=== PATIENT | female | born 2000 | race Caucasian/White ===

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

== ENCOUNTER 2023-07-18 07:36 | Inpatient (IN) ==
[2023-07-18] MEDS ORDERED: OXYTOCIN 30 UNITS/500 ML BAG IV PRN ×3 (08:13→19:38)
[2023-07-18] MEDS ORDERED: LIDOCAINE 1% LOCAL 20 ML VIAL INFIL PRN (08:13)
[2023-07-18] MEDS ORDERED: PENICILLIN G POTASSIUM 6 MU in DEXTROSE 5% 250 ML IV STA (08:20)
--- NOTE | 2023-07-18 08:27 | History & Physical Report ---
Date of Service July 18, 2023 Assessment & Plan (1) Encounter for induction of labor: Plan: failed hobbs insertion cytotec 25mcg PV (2) Group beta Strep positive: Plan: Pen G when contractions more regular Admission and Anticipated Discharge Date Admission Date: July 18, 2023 History of Present Illness Chief Complaint: 23 yo at 39w4d GBS+, umbilical vein abnormality, gestational diabetes, depression with anxiety here for IOL Primary Care Provider: Angelica Krishnan PA-C Allergies Allergy/AdvReac Type Severity Reaction Status Date / Time No Known Drug Allergies Allergy Verified 07/17/23 14:37 Home Medications Medication Instructions Recorded Confirmed Type prenat.vits,tru,jen-ifhx-[id number] 1 tab PO DAILY 12/25/22 07/18/23 History acetone (urine) test (Ketone Urine #50 ea 03/30/23 07/18/23 Rx Test strips) blood sugar diagnostic (OneTouch #150 ea 03/30/23 07/18/23 Rx Verio test strips) blood-glucose meter (OneTouch #1 ea 03/30/23 07/18/23 Rx Verio Reflect Meter) lancets 33 gauge (OneTouch Delica #150 ea 03/30/23 07/18/23 Rx Lancets) Past Med/Surg History Medical History Acne Dyshidrotic eczema Hx of concussion Left knee pain Varicella vaccination Surgical History S/P wisdom tooth extraction Family History Father Hypertension Mother Insulin resistance Hypothyroid Brother Hydronephrosis of right kidney Grandmother (Maternal) Diabetes Denies family history of Ovarian cancer Breast cancer Colorectal cancer Social History (Updated 07/18/23 @ 07:50 by Dahiana Haywood RN) Smoking Status: Never smoker Second Hand Exposure: No; Do You Dip or Chew Tobacco: No; Hx Alcohol Use: No Hx Substance Use: No Preferred Language: Lithuanian Communication Ability: Effective Assemblies [employer] Installations Inspector Required: No Beliefs That Will Affect Care: None marital status: marital status details: shashank Prado (25) [phone] Current Living Situation: Spouse Current Living Situation Comment: lives with , no pets current occupational status: unemployed current occupation: [employer] Other Information That Helps Us Care for You: No Feels Safe at Home: Yes Safety Concerns: Feels Safe At This Time Assistive Devices: Contacts and Glasses Physical Exam Physical Exam: General: patient resting comfortably, NAD, non-toxic in appearance, AA&O x 4, answers questions appropriately. Skin: warm, dry, intact HEENT: NC/AT, anicteric sclera, conjunctiva without injection, moist mucus membranes Heart: +S1/S2, regular, no m/r/g Lungs: equal air entry bilaterally, no rales/rhonchi/wheezes Abd: +BS, soft, NT/ND, gravid uterus Cervical: closed, high, uterus posterior, Ext: warm, no clubbing/cyanosis or edema Neuro: nonfocal, patient AA&O x 4, speech intact, no facial droop, moving all extremities on command. : FHR baseline 150, moderate variability, accelerations present, decelera tions absent Results & Data Results & Data Vital Signs (Past 12 Hours) Vital Signs Temp Pulse Resp BP 07/18/23 07:45 118 H 130/70 07/18/23 07:54 37.0 C 118 H 20 130/70 Laboratory Results 07/18/23 07/18/23 07/18/23 Range/Units 08:20 08:20 08:20 WBC 9.93 (4.8-10.8) K/ul RBC 4.34 (4.20-5.40) M/uL Hgb 11.0 L (12.0-16.0) g/dl Hct 33.4 L (37.0-47.0) % MCV 77.0 L (80.0-100.0) fL MCH 25.3 (25.0-34.0) pg MCHC 32.9 (32.0-36.0) g/dL RDW Std Deviation 39.6 (36.4-46.3) fL RDW Coeff of Angie 14.3 (11.5-14.5) % Plt Count 278 (130-400) K/uL MPV 9.5 (9.4-12.4) fL Glucose Pending Blood Type Pending Antibody Screen Pending Supervising Physician Co-Signing Physician Notes Resident Physician Supervision Note: I interviewed and examined the patient. Discussed with Dr. Posadas and agree with findings and plan as documented in the note. Any exceptions or clarifications are listed here: [None] Documented By: Debbie Alvares MD, FACOG Resident Activity Tracking Resident Involvement: Resident Care Provided Care Provided: Adult [facility] Medicine
[2023-07-18 08:40] LABS: Hematocrit (blood only) 33.4 % (37.0-47.0); Mean Corpuscular Hemoglobin 25.3 pg (25.0-34.0); Mean Corpuscular Hgb Conc 32.9 g/dL (32.0-36.0); Mean Platelet Volume 9.5 fL (9.4-12.4); Platelet Count 278 K/uL (130-400); RDW Coefficient of Variation 14.3 % (11.5-14.5); RDW Standard Deviation 39.6 fL (36.4-46.3); Red Blood Count 4.34 M/uL (4.20-5.40); White Blood Count 9.93 K/ul (4.8-10.8)
[2023-07-18] MEDS ORDERED: miSOPROStoL 25 MCG TAB ONE (08:45)
[2023-07-18] MEDS ORDERED: miSOPROStoL 25 MCG TAB PV SCH (09:00)
--- NOTE | 2023-07-18 09:16 | History & Physical Report ---
Date of Service July 18, 2023 Assessment & Plan (1) Umbilical vein abnormality affecting : Plan: induction for obstetrical reasons Cervix unfav, attempted cx hobbs, unable to pass thru cx successfully. Start Cytotec PV Admission and Anticipated Discharge Date Admission Date: July 18, 2023 History of Present Illness Primary Care Provider: Angelica Krishnan PA-C Allergies Allergy/AdvReac Type Severity Reaction Status Date / Time No Known Drug Allergies Allergy Verified 07/17/23 14:37 Home Medications Medication Instructions Recorded Confirmed Type prenat.vits,tru,rcu-thua-kkswd 1 tab PO DAILY 12/25/22 07/18/23 History acetone (urine) test (Ketone Urine #50 ea 03/30/23 07/18/23 Rx Test strips) blood sugar diagnostic (OneTouch #150 ea 03/30/23 07/18/23 Rx Verio test strips) blood-glucose meter (OneTouch #1 ea 03/30/23 07/18/23 Rx Verio Reflect Meter) lancets 33 gauge (OneTouch Delica #150 ea 03/30/23 07/18/23 Rx Lancets) Patient History Medical History Acne Dyshidrotic eczema Hx of concussion Left knee pain Varicella vaccination Surgical History S/P wisdom tooth extraction Family History Father Hypertension Mother Insulin resistance Hypothyroid Brother Hydronephrosis of right kidney Grandmother (Maternal) Diabetes Denies family history of Ovarian cancer Breast cancer Colorectal cancer Social History (Updated 07/18/23 @ 07:50 by Dahiana Haywood, ROSALBA) Smoking Status: Never smoker Second Hand Exposure: No; Do You Dip or Chew Tobacco: No; Hx Alcohol Use: No Hx Substance Use: No Preferred Language: Wolof Communication Ability: Effective [employer] Consultant Required: No Beliefs That Will Affect Care: None marital status: marital status details: shashank Prado (25) [phone] Current Living Situation: Spouse Current Living Situation Comment: lives with , no pets current occupational status: unemployed current occupation: [employer] Other Information That Helps Us Care for You: No Feels Safe at Home: Yes Safety Concerns: Feels Safe At This Time Assistive Devices: Contacts and Glasses Results & Data Vital Signs (Past 12 Hours) Vital Signs Temp Pulse Resp BP 07/18/23 07:45 118 H 130/70 07/18/23 07:54 98.6 F 118 H 20 130/70 Coding Level of Care Code None Diagnoses Umbilical vein abnormality affecting O35.8XX0
[2023-07-18] MEDS: miSOPROStoL 25 MCG TAB PV SCH ×3 (13:09→23:14)
--- NOTE | 2023-07-18 19:34 | Labor Progress Brief Note ---
Date of Service July 18, 2023 Patient has received 2 doses of Cytotec and she is tova however there is strength is still not highly intense cervical check is performed she is somewhat more effaced however I cannot perceive any dilatation at this time discussed continued efforts patient is very hungry now would like to eat something I think this is reasonable after this then I will start Pitocin. Assessment & Plan Admission and Anticipated Discharge Date Admission Date: July 18, 2023 Results & Data Vital Signs (Past 12 Hours) Vital Signs Temp Pulse Resp BP 07/18/23 18:54 97.5 F L 91 H 18 98/57 L 07/18/23 16:52 98.4 F 81 18 125/71 07/18/23 12:31 18 07/18/23 12:31 98.4 F 18 07/18/23 12:32 83 127/62 07/18/23 09:49 18 07/18/23 09:49 18 07/18/23 07:45 118 H 130/70 07/18/23 07:54 98.6 F 118 H 20 130/70 Coding Level of Care Code None Diagnoses
[2023-07-19] MEDS: LACTATED RINGER'S 1,000 ML IV PRN ×5 (00:11→17:35)
[2023-07-19] MEDS: miSOPROStoL 25 MCG TAB PV SCH (00:18)
[2023-07-19] MEDS: PENICILLIN G POTASSIUM 3 MU in DEXTROSE 5% 100 ML IV PRN ×5 (04:23→20:58)
[2023-07-19] MEDS ORDERED: ACETAMINOPHEN 325 MG TAB PO PRN (05:52)
[2023-07-19] MEDS ORDERED: BUTORPHANOL TARTRATE 1 MG/ML VIAL IV PRN (06:19)
--- NOTE | 2023-07-19 06:53 | Labor Progress Brief Note ---
Date of Service July 19, 2023 Patient is getting much more uncomfortable with been on Pitocin initially Cytotec for induction there was an attempted a cervical Melendrez yesterday morning however would not pass through the cervix at that time. Patient rates her contractions significantly more uncomfortable and she is at 11 on Pitocin I reviewed carefully again with the patient that while induction process can take a while but she is made some progress now she is 1 cm cervix is significantly softer as well. Would prefer to avoid epidural until she is closer to 3 cm we are using Stadol now for pain medication. Did discuss that sometimes epidural can be used prior to 3 cm but at this time she would like to to withhold. heart rate is category 1 continue to induce Assessment & Plan Admission and Anticipated Discharge Date Admission Date: July 18, 2023 Results & Data Vital Signs (Past 12 Hours) Vital Signs Temp Pulse Resp BP 07/19/23 06:00 98.8 F 07/19/23 06:13 109 H 127/55 L 07/19/23 05:12 102 H 128/60 07/19/23 04:11 99 H 130/58 L 07/19/23 03:13 103 H 134/61 07/19/23 02:13 93 H 110/59 L 07/19/23 01:11 85 122/80 07/19/23 00:11 96 H 123/68 07/18/23 23:07 18 07/18/23 23:07 97.7 F 18 07/18/23 23:08 90 114/72 07/18/23 18:54 97.5 F L 91 H 18 98/57 L Coding Level of Care Code None Diagnoses
--- NOTE | 2023-07-19 09:06 | Labor Progress Brief Note ---
Date of Service July 19, 2023 Subjective pt breathing through some ctx but not severe pain. anxious Assessment & Plan (1) Encounter for induction of labor: (2) Group beta Strep positive: (3) Umbilical vein abnormality affecting : (4) Gestational diabetes: (5) Obesity affecting : Plan some cx change. arom done to see if helps progress labor, after informed consent. fhts categ 1. c/w pit Admission and Anticipated Discharge Date Admission Date: July 18, 2023 Physical Exam Constitutional: WD/WN, vitals as above Genitourinary: Manual OB Exam: + cervical dilation (1-2cm), + cervical effacement (75%), + station -2 and + amniotic fluid (arom) clear OB Exam Monitor Tracing: + external FHT monitor used, + external uterine monitor used (irregular, pit at 13), + category I and + normal FHT variability Results & Data Vital Signs (Past 12 Hours) Vital Signs Temp Pulse Resp BP 07/19/23 08:06 88 110/51 L 07/19/23 07:05 20 07/19/23 07:05 98.4 F 20 07/19/23 07:12 88 99/66 L 07/19/23 06:00 98.8 F 07/19/23 06:13 109 H 127/55 L 07/19/23 05:12 102 H 128/60 07/19/23 04:11 99 H 130/58 L 07/19/23 03:13 103 H 134/61 07/19/23 02:13 93 H 110/59 L 07/19/23 01:11 85 122/80 07/19/23 00:11 96 H 123/68 07/18/23 23:07 18 07/18/23 23:07 97.7 F 18 07/18/23 23:08 90 114/72 Coding Level of Care Code None Diagnoses Encounter for induction of labor Z34.90 Group beta Strep positive B95.1 Umbilical vein abnormality affecting O35.8XX0 Gestational diabetes O24.419 Obesity affecting O99.210
[2023-07-19] MEDS ORDERED: fentaNYL citrate PF 100 MCG/2 ML VIAL ONE (10:39)
[2023-07-19] MEDS ORDERED: BUPIVACAINE 0.25% PF 30 ML VIAL ONE (10:40)
[2023-07-19] MEDS ORDERED: LIDOCAINE 2%/EPINEPHRINE 1:200,000 20 ML PF ONE (10:40)
[2023-07-19] MEDS ORDERED: ePHEDrine sulfate 50 MG/ML AMP ONE (10:40)
[2023-07-19] MEDS ORDERED: SODIUM CHLORIDE 0.9% PF INJ 10 ML VIAL ONE (10:40)
[2023-07-19] MEDS ORDERED: fentaNYL 2MCG/ML ROPIVACAINE 1.25MG/ML 100 ML BAG EPI ONE (10:41)
[2023-07-19] MEDS ORDERED: SODIUM CHLORIDE 0.9% PF INJ 10 ML VIAL EPI PRN (10:54)
[2023-07-19] MEDS ORDERED: LIDOCAINE 2%/EPINEPHRINE 1:200,000 20 ML PF EPI STA (10:54)
[2023-07-19] MEDS ORDERED: ePHEDrine sulfate 50 MG/ML AMP IV PRN (10:54)
[2023-07-19] MEDS ORDERED: BUPIVACAINE 0.25% PF 30 ML VIAL EPI PRN (10:54)
[2023-07-19] MEDS ORDERED: ROPIVACAINE 0.5% PF 5 MG/ML 20 ML VIAL EPI PRN (10:54)
[2023-07-19] MEDS ORDERED: NALBUPHINE HCL INJ 10 MG/ML AMP IV PRN (10:54)
[2023-07-19] MEDS ORDERED: fentaNYL 2MCG/ML ROPIVACAINE 1.25MG/ML 100 ML BAG EPI PRN (10:54)
[2023-07-19] MEDS ORDERED: diphenhydrAMINE 50 MG/ML VIAL IV PRN (10:54)
[2023-07-19] MEDS ORDERED: NALOXONE HCL 0.4 MG/1 ML VIAL/CARP IV PRN (10:54)
[2023-07-19] MEDS ORDERED: fentaNYL citrate PF 100 MCG/2 ML VIAL EPI PRN (10:54)
[2023-07-19] MEDS ORDERED: LIDOCAINE 2% MPF LOCAL 5 ML VIAL EPI PRN (10:54)
[2023-07-19] MEDS ORDERED: NALOXONE HCL 1 MG in SODIUM CHLORIDE 0.9% 1,000 ML IV PRN (10:54)
--- NOTE | 2023-07-19 10:54 | Anesthesiology Consultation ---
Date of Service July 19, 2023 Assessment & Plan Chart Review Chart Review: Patient NOT seen in Pre Admission Testing and Acceptable Risk for Labor Epidural History Height/Weight Height: 5 ft 2 in Weight: 119.295 kg Allergies Allergy/AdvReac Type Severity Reaction Status Date / Time No Known Drug Allergies Allergy Verified 07/17/23 14:37 Medications Home Medications Medication Instructions Recorded Confirmed Last Taken prenat.vits,tru,abn-pasf-wfuzu 1 tab PO DAILY 12/25/22 07/18/23 07/16/23 09:00 acetone (urine) test (Ketone Urine #50 ea 03/30/23 07/18/23 Unknown Test strips) blood sugar diagnostic (OneTouch #150 ea 03/30/23 07/18/23 Unknown Verio test strips) blood-glucose meter (OneTouch #1 ea 03/30/23 07/18/23 Unknown Verio Reflect Meter) lancets 33 gauge (OneTouch Delica #150 ea 03/30/23 07/18/23 Unknown Lancets) Active Medications Generic Name Dose Route Start Last Admin Trade Name Freq PRN Reason Stop Dose Admin Acetaminophen 650 mg 07/19/23 05:52 07/19/23 06:05 Acetaminophen 325 Mg Tab PO 08/18/23 05:51 650 mg Q4H PRN Administration Pain Butorphanol Tartrate 1 mg 07/19/23 06:19 07/19/23 07:31 Butorphanol Tartrate 1 Mg/Ml Vial IV 08/18/23 06:18 1 mg Q1HWA PRN Administration Pain Lactated Ringer's 1,000 mls @ 125 mls/hr 07/18/23 08:13 07/19/23 08:27 Lr IV 07/20/23 08:12 125 mls/hr .Q8H PRN Infusion L&D Protocol Protocol Penicillin G Potassium 3 mu/ 106 mls @ 100 mls/hr 07/18/23 12:00 07/19/23 08:56 Dextrose IV 07/28/23 11:59 100 mls/hr Q4H PRN Administration GBS(+) Until Delivery Oxytocin 30 units in 500 mls @ 13 mls/hr 07/18/23 08:13 07/19/23 08:35 Pitocin IV 07/20/23 08:12 0.78 units/hr .Q24H PRN 13 mls/hr Labor Induction/Augmentation Titration Protocol 0.78 UNITS/HR Past Medical History Medical History Acne Dyshidrotic eczema Hx of concussion Left knee pain Varicella vaccination Past Family History Family History Father Hypertension Mother Insulin resistance Hypothyroid Brother Hydronephrosis of right kidney Grandmother (Maternal) Diabetes Denies family history of Ovarian cancer Breast cancer Colorectal cancer Past Surgical History Surgical History S/P wisdom tooth extraction Social History Smoking Status: Never smoker Do You Dip or Chew Tobacco: No Hx Alcohol Use: No Hx Substance Use: No substance use type: does not use Physical Exam Vital Signs Last Vital Signs Temp 37.1 C 07/19/23 08:57 Pulse 83 07/19/23 10:12 Resp 20 07/19/23 07:05 BP 128/62 07/19/23 10:12 Constitutional WD/WN, vitals as above Genitourinary Manual OB Exam: + cervical dilation (1-2cm), + cervical effacement (75%), + station + -2 and + amniotic fluid (arom) + clear OB Exam Monitor Tracing: + external FHT monitor used, + external uterine monitor used (irregular, pit at 13), + category I and + normal FHT variability Testing Laboratory Results 07/18/23 08:20 07/18/23 08:20 Blood Type O Positive 07/18/23 08:20 Antibody Screen NEGATIVE 07/18/23 08:20 07/19/23 07/19/23 10:02 08:04 POC Glucose 111 H 104 H
[2023-07-19] MEDS ORDERED: Nursing to Pharmacy Communication SCH (14:00)
--- NOTE | 2023-07-19 14:14 | Labor Progress Brief Note ---
Date of Service July 19, 2023 Subjective comfortable with epidural. Assessment & Plan (1) Encounter for induction of labor: (2) Group beta Strep positive: (3) Umbilical vein abnormality affecting : (4) Gestational diabetes: (5) Obesity affecting : Plan c/ w pitocin, fhts categ 1, c/w with pcn for gbs pos, bsgs noted. Admission and Anticipated Discharge Date Admission Date: July 18, 2023 Physical Exam Constitutional: WD/WN, vitals as above Genitourinary: Manual OB Exam: + cervical dilation 2 cm, + cervical effacement 80% and + station -2 OB Exam Monitor Tracing: + external FHT monitor used, + external uterine monitor used (irreg pit at 17), + category I and + normal FHT variability Results & Data Vital Signs (Past 12 Hours) Vital Signs Temp Pulse Resp BP Pulse Ox 07/19/23 14:11 83 96 07/19/23 14:00 18 07/19/23 14:00 98.4 F 18 07/19/23 14:08 75 109/62 07/19/23 14:06 77 98 07/19/23 14:01 85 99 07/19/23 13:56 83 95 07/19/23 13:51 81 96 07/19/23 13:52 81 113/63 07/19/23 13:45 18 07/19/23 13:45 18 07/19/23 13:46 89 97 07/19/23 13:41 79 96 07/19/23 13:29 18 07/19/23 13:29 18 07/19/23 13:38 75 119/69 07/19/23 13:36 80 96 07/19/23 13:31 76 97 07/19/23 13:26 80 96 07/19/23 13:23 75 113/65 07/19/23 13:21 75 95 07/19/23 12:45 18 07/19/23 12:45 18 07/19/23 13:15 18 07/19/23 13:15 18 07/19/23 13:16 76 97 07/19/23 13:11 77 98 07/19/23 13:08 85 115/70 07/19/23 13:06 77 99 07/19/23 13:01 70 18 97 07/19/23 12:56 72 97 07/19/23 12:53 77 108/62 07/19/23 12:51 76 99 07/19/23 12:46 79 100 07/19/23 12:41 80 97 07/19/23 12:36 80 96 07/19/23 12:30 18 07/19/23 12:30 18 07/19/23 11:55 18 07/19/23 11:55 18 07/19/23 12:05 18 07/19/23 12:05 18 07/19/23 12:15 18 07/19/23 12:15 18 07/19/23 12:33 73 107/61 07/19/23 12:31 77 97 07/19/23 11:40 18 07/19/23 11:40 18 07/19/23 11:10 22 07/19/23 11:10 22 07/19/23 11:35 20 07/19/23 11:35 20 07/19/23 12:28 75 106/55 L 07/19/23 11:15 24 07/19/23 11:15 24 07/19/23 11:20 22 07/19/23 11:20 22 07/19/23 12:26 75 98 07/19/23 12:25 78 111/60 07/19/23 12:21 80 98 07/19/23 12:20 84 113/63 07/19/23 12:17 79 92 07/19/23 12:16 79 97 07/19/23 12:14 125 H 117/60 07/19/23 12:11 110 H 100 07/19/23 12:09 76 110/62 07/19/23 12:06 78 98 07/19/23 12:03 79 98/64 L 07/19/23 12:01 99.1 F 72 18 99 07/19/23 11:59 75 106/62 07/19/23 11:56 85 97 07/19/23 11:53 76 98/59 L 07/19/23 11:51 82 98 07/19/23 11:48 80 100/60 07/19/23 11:46 86 99 07/19/23 11:45 84 18 100/56 L 07/19/23 11:41 77 99 07/19/23 11:37 78 118/60 07/19/23 11:36 77 97 07/19/23 11:32 110/51 L 07/19/23 11:31 79 99 07/19/23 11:30 85 117/55 L 07/19/23 11:28 85 18 114/58 L 07/19/23 11:26 81 99 07/19/23 11:25 82 108/61 07/19/23 11:21 112 H 100 07/19/23 11:16 119 H 100 07/19/23 11:11 104 H 131/72 100 07/19/23 11:06 91 H 100 07/19/23 11:01 80 100 07/19/23 10:12 83 128/62 07/19/23 08:57 98.8 F 07/19/23 09:13 75 134/68 07/19/23 08:06 88 110/51 L 07/19/23 07:05 20 07/19/23 07:05 98.4 F 20 07/19/23 07:12 88 99/66 L 07/19/23 06:00 98.8 F 07/19/23 06:13 109 H 127/55 L 07/19/23 05:12 102 H 128/60 07/19/23 04:11 99 H 130/58 L 07/19/23 03:13 103 H 134/61 Coding Level of Care Code None Diagnoses Encounter for induction of labor Z34.90 Group beta Strep positive B95.1 Umbilical vein abnormality affecting O35.8XX0 Gestational diabetes O24.419 Obesity affecting O99.210
[2023-07-19] MEDS ORDERED: CALCIUM CARBONATE 500 MG CHEWABLE TAB PO PRN (15:42)
[2023-07-19] MEDS ORDERED: ONDANSETRON INJ 2 MG/ML 2 ML VIAL IV STA (16:56)
--- NOTE | 2023-07-19 17:55 | Communication Note ---
Date of Service: July 19, 2023 notified by nursing of tachy, late decels after n/v, pit off, o2 applied, pos change for in-utero resuscitation. no fever. strip reviewed. now fhts categ1. ctx have spaced out significantly. will restart pitocin per protocol.
--- NOTE | 2023-07-19 21:06 | Labor Progress Brief Note ---
Date of Service July 19, 2023 Subjective pt comfortable with epidural. Assessment & Plan (1) Encounter for induction of labor: (2) Group beta Strep positive: (3) Umbilical vein abnormality affecting : (4) Gestational diabetes: (5) Obesity affecting : Plan no evidence of good labor pattern. cont to increase pit to achieve. if reaches pit max, will reeval at that time. fhts categ 1. will avoid cx checks until would expect to see change or concern for status. pt aware. Admission and Anticipated Discharge Date Admission Date: July 18, 2023 Physical Exam Constitutional: WD/WN, vitals as above Genitourinary: OB Exam Monitor Tracing: + external FHT monitor used, + external uterine monitor used (q8min), + category I and + normal FHT variability Results & Data Vital Signs (Past 12 Hours) Vital Signs Temp Pulse Resp BP Pulse Ox 07/19/23 21:01 84 99 07/19/23 20:56 84 99 07/19/23 20:52 84 96/53 L 07/19/23 20:51 83 100 07/19/23 20:46 83 100 07/19/23 20:41 85 99 07/19/23 20:38 80 108/54 L 07/19/23 20:36 87 98 07/19/23 20:31 77 100 07/19/23 20:26 90 98 07/19/23 19:30 18 07/19/23 19:30 18 07/19/23 20:21 94 H 97 07/19/23 20:22 95 H 106/56 L 07/19/23 20:16 83 97 07/19/23 20:11 79 97 07/19/23 20:07 78 106/54 L 07/19/23 20:06 81 98 07/19/23 20:00 18 07/19/23 20:00 18 07/19/23 20:01 82 97 07/19/23 19:56 77 99 07/19/23 19:53 73 106/53 L 07/19/23 19:51 79 95 07/19/23 19:48 82 92 07/19/23 19:46 100 H 99 07/19/23 19:41 73 98 07/19/23 19:37 78 107/58 L 07/19/23 19:36 104 H 100 07/19/23 19:31 81 95 07/19/23 19:26 74 98 07/19/23 19:10 18 07/19/23 19:10 98.8 F 18 07/19/23 19:22 80 98/52 L 07/19/23 19:21 95 07/19/23 19:21 79 07/19/23 19:21 83 94 07/19/23 19:16 79 96 07/19/23 19:15 81 92 07/19/23 19:11 79 96 07/19/23 19:09 86 92 07/19/23 19:06 115 H 98 07/19/23 19:00 18 07/19/23 19:00 18 07/19/23 19:01 101 H 98 07/19/23 18:58 89 94 07/19/23 18:56 94 H 94 07/19/23 18:51 89 94 07/19/23 18:52 83 102/53 L 94 07/19/23 18:46 88 94 07/19/23 18:41 80 95 07/19/23 18:40 85 94 07/19/23 18:37 80 110/65 07/19/23 18:36 83 96 07/19/23 18:30 18 07/19/23 18:30 18 07/19/23 18:35 91 H 94 07/19/23 18:31 83 94 07/19/23 18:28 87 94 07/19/23 18:26 87 98 07/19/23 18:21 94 07/19/23 18:21 81 07/19/23 18:22 85 108/63 07/19/23 18:21 87 94 07/19/23 18:16 79 97 07/19/23 16:29 20 07/19/23 16:29 20 07/19/23 17:00 18 07/19/23 17:00 18 07/19/23 17:29 20 07/19/23 17:29 20 07/19/23 18:00 20 07/19/23 18:00 20 07/19/23 18:11 84 94 07/19/23 18:07 88 111/67 07/19/23 18:06 81 96 07/19/23 18:01 79 97 07/19/23 17:56 84 97 07/19/23 17:53 77 118/72 07/19/23 17:51 89 98 07/19/23 17:46 82 100 07/19/23 17:41 71 100 07/19/23 17:36 83 100 07/19/23 17:37 74 113/58 L 07/19/23 17:31 74 100 07/19/23 17:26 74 100 07/19/23 17:22 75 113/57 L 07/19/23 17:21 83 97 07/19/23 17:16 96 07/19/23 17:16 83 07/19/23 17:16 82 94 07/19/23 17:11 97 H 98 07/19/23 17:06 78 96 07/19/23 17:07 69 102/54 L 07/19/23 17:03 99.1 F 07/19/23 17:01 115 H 97 07/19/23 16:56 138 H 96 07/19/23 16:55 139 H 94 07/19/23 16:53 181 H 127/56 L 07/19/23 16:51 158 H 99 07/19/23 16:46 116 H 96 07/19/23 16:41 113 H 97 07/19/23 16:38 108 H 111/69 07/19/23 16:36 127 H 100 07/19/23 16:31 78 98 07/19/23 16:26 76 98 07/19/23 16:23 81 122/74 07/19/23 16:21 78 97 07/19/23 16:00 18 07/19/23 16:00 99.0 F 18 07/19/23 16:16 76 97 07/19/23 16:15 18 07/19/23 16:15 18 07/19/23 16:11 94 H 98 07/19/23 16:06 79 97 07/19/23 16:07 75 117/72 07/19/23 16:00 18 07/19/23 16:00 18 07/19/23 16:01 80 96 07/19/23 15:56 85 99 07/19/23 15:52 78 110/67 07/19/23 15:51 81 98 07/19/23 15:46 76 98 07/19/23 15:45 18 07/19/23 15:45 18 07/19/23 15:29 18 07/19/23 15:29 18 07/19/23 15:41 88 99 07/19/23 15:38 86 112/79 07/19/23 15:36 82 100 07/19/23 15:31 77 98 07/19/23 15:26 77 99 07/19/23 14:45 18 07/19/23 14:45 18 07/19/23 15:24 78 116/74 07/19/23 15:21 77 98 07/19/23 15:16 81 98 07/19/23 15:11 75 98 07/19/23 15:06 88 100 07/19/23 15:01 79 97 07/19/23 14:56 76 97 07/19/23 14:53 74 109/64 07/19/23 14:51 76 96 07/19/23 14:46 76 97 07/19/23 14:41 77 97 07/19/23 14:36 80 96 07/19/23 14:37 79 110/57 L 07/19/23 14:30 18 07/19/23 14:30 18 07/19/23 14:31 77 96 07/19/23 14:26 81 96 07/19/23 14:23 78 110/55 L 07/19/23 14:21 83 96 07/19/23 14:15 18 07/19/23 14:15 18 07/19/23 14:16 80 95 07/19/23 14:11 83 96 07/19/23 14:00 18 07/19/23 14:00 98.4 F 18 07/19/23 14:08 75 109/62 07/19/23 14:06 77 98 07/19/23 14:01 85 99 07/19/23 13:56 83 95 07/19/23 13:51 81 96 07/19/23 13:52 81 113/63 07/19/23 13:45 18 07/19/23 13:45 18 07/19/23 13:46 89 97 07/19/23 13:41 79 96 07/19/23 13:29 18 07/19/23 13:29 18 07/19/23 13:38 75 119/69 07/19/23 13:36 80 96 07/19/23 13:31 76 97 07/19/23 13:26 80 96 07/19/23 13:23 75 113/65 08/31/23 13:21 75 95 07/19/23 12:45 18 07/19/23 12:45 18 07/19/23 13:15 18 07/19/23 13:15 18 07/19/23 13:16 76 97 07/19/23 13:11 77 98 07/19/23 13:08 85 115/70 07/19/23 13:06 77 99 07/19/23 13:01 70 18 97 07/19/23 12:56 72 97 07/19/23 12:53 77 108/62 07/19/23 12:51 76 99 07/19/23 12:46 79 100 07/19/23 12:41 80 97 07/19/23 12:36 80 96 07/19/23 12:30 18 07/19/23 12:30 18 07/19/23 11:55 18 07/19/23 11:55 18 07/19/23 12:05 18 07/19/23 12:05 18 07/19/23 12:15 18 07/19/23 12:15 18 07/19/23 12:33 73 107/61 07/19/23 12:31 77 97 07/19/23 11:40 18 07/19/23 11:40 18 07/19/23 11:10 22 07/19/23 11:10 22 07/19/23 11:35 20 07/19/23 11:35 20 07/19/23 12:28 75 106/55 L 07/19/23 11:15 24 07/19/23 11:15 24 07/19/23 11:20 22 07/19/23 11:20 22 07/19/23 12:26 75 98 07/19/23 12:25 78 111/60 07/19/23 12:21 80 98 07/19/23 12:20 84 113/63 07/19/23 12:17 79 92 07/19/23 12:16 79 97 07/19/23 12:14 125 H 117/60 07/19/23 12:11 110 H 100 07/19/23 12:09 76 110/62 07/19/23 12:06 78 98 07/19/23 12:03 79 98/64 L 07/19/23 12:01 99.1 F 72 18 99 07/19/23 11:59 75 106/62 07/19/23 11:56 85 97 07/19/23 11:53 76 98/59 L 07/19/23 11:51 82 98 07/19/23 11:48 80 100/60 07/19/23 11:46 86 99 07/19/23 11:45 84 18 100/56 L 07/19/23 11:41 77 99 07/19/23 11:37 78 118/60 07/19/23 11:36 77 97 07/19/23 11:32 110/51 L 07/19/23 11:31 79 99 07/19/23 11:30 85 117/55 L 07/19/23 11:28 85 18 114/58 L 07/19/23 11:26 81 99 07/19/23 11:25 82 108/61 07/19/23 11:21 112 H 100 07/19/23 11:16 119 H 100 07/19/23 11:11 104 H 131/72 100 07/19/23 11:06 91 H 100 07/19/23 11:01 80 100 07/19/23 10:12 83 128/62 07/19/23 09:13 75 134/68 Coding Level of Care Code None Diagnoses Encounter for induction of labor Z34.90 Group beta Strep positive B95.1 Umbilical vein abnormality affecting O35.8XX0 Gestational diabetes O24.419 Obesity affecting O99.210
[2023-07-19] MEDS ORDERED: NURSING L&D Epidural Breakthrough Pain Update ONE (22:20)
--- NOTE | 2023-07-19 23:10 | Anesthesia Procedure Note ---
Date of Service July 19, 2023 Anesthesia Epidural Re-Dose Vital Signs Temp Pulse Resp BP Pulse Ox 37.3 C 81 18 100/55 L 99 07/19/23 23:05 07/19/23 23:07 07/19/23 23:04 07/19/23 23:07 07/19/23 23:06 Notes Pain Intensity: 3 Dilatation (cm): 5.5 Effacement (%): 75 right hip pain improved with positioning and lidocisne bolus After Epidural Re-Dose Mental Status: alert / awake / arousable Pain: adequately controlled Airway Patency, RR, SpO2: stable & adequate BP & HR: stable & adequate
[2023-07-20] MEDS ORDERED: miSOPROStoL 200 MCG TAB PR ONE ×2 (01:25→01:41)
--- NOTE | 2023-07-20 01:39 | Delivery Summary ---
Vaginal Delivery Summary Date of Service July 20, 2023 Vaginal Delivery Summary and 2nd Degree LAC The patient dilated to complete and pushed to deliver a viable male infant Apgars 7 and 8 via over 2nd degree perineal laceration. Loose nuchal x 1 reduced and shoulder dystocia encountered and so continued maternal expulsive efforts were advised, Brian maneuvers and ultimately suprapubic pressure given to release anterior shoulder with gentle downward traction of the cephalic. Remaining shoulders and body delivered with ease. Infant was vigorous at first but then cord rapidly clamped and infant to maternal abdomen where the cord was then doubly clamped and cut, so that infant could be taken to radiant warmer for drying and attention. Placenta delivered spontaneously and intact, three-vessel cord. Hemostasis not achieved with dilute pitocin and uterine massage/bimanual massage and therefore rectal cytotec and IM methergine given x 1. Hemostasis improved. Of note hobbs was removed prior to pushing and pushing efforts were 10-15min. Cervix and sulci intact. Laceration repaired with 3-0 vicryl in usual fashion after additional 1% local lidocaine for anesthesia. EBL 500 cc. Mother and baby stable in recovery. [facility] [place] Vaginal Delivery Charge Delivery Type Details: and 2nd Degree LAC
[2023-07-20] MEDS ORDERED: bisacodyL 10 MG SUPP PR PRN (01:41)
[2023-07-20] MEDS ORDERED: oxyCODONE/ACETAMINOPHEN 5mg/325mg TAB PO PRN (01:41)
[2023-07-20] MEDS ORDERED: HYDROCORTISONE ACETATE 25 MG SUPP PR PRN (01:41)
[2023-07-20] MEDS ORDERED: OXYTOCIN 30 UNITS/500 ML BAG IV PRN (01:41)
[2023-07-20] MEDS ORDERED: METHYLERGONOVINE MALEATE 0.2 MG/ML AMP IM ONE (01:41)
[2023-07-20] MEDS ORDERED: BENZOCAINE 20% SPRY 85 APPLN/85 GM CAN EXT PRN (01:41)
[2023-07-20] MEDS ORDERED: DIPHTHERIA/TETANUS/PERTUSSIS Vaccine (Tdap, Age 7+yrs) 0.5mL SYR/VL IM ONE (01:41)
[2023-07-20] MEDS ORDERED: ACETAMINOPHEN 325 MG TAB PO PRN (01:41)
[2023-07-20 01:45] LABS: Cord Venous Blood HCO3 20 mmol/L (18.4-26.8); Cord Venous Blood PCO2 32 mmHg (30.4-57.2); Cord Venous Blood PO2 34 mmHg (14.1-43.3); O2 Saturation Cord Venous Bld 60.2 % (<68)
[2023-07-20] MEDS ORDERED: OXYTOCIN 20 UNITS in LACTATED RINGER'S 1,000 ML IV SCH (01:45)
[2023-07-20 01:51] LABS: Base Excess Cord Arterial Bld -4.4 mEq/L (-9-1.8); CO2 Cord Arterial Blood 48 mmHg (39.1-73.5); HCO3 Cord Arterial Blood 23 mmol/L (19.7-28.5); Oxygen Sat Cord Arterial Blood < 60.0 % (<60); PO2 Cord Arterial Blood 23 mmHg (4.1-31.7); pH Cord Arterial Blood 7.28 (7.1-7.38)
[2023-07-20] MEDS: IBUPROFEN 600 MG TAB PO PRN ×5 (02:58→21:47)
[2023-07-20] MEDS: PRENATAL VITAMIN 1 TAB PO SCH (08:01)
[2023-07-20] MEDS: DOCUSATE SODIUM 100 MG CAP PO SCH ×2 (08:01→21:48)
--- NOTE | 2023-07-20 10:12 | Anesthesia Procedure Note ---
Date of Service July 20, 2023 Anesthesia Post Epidural Note Vital Signs Vital Signs: Temp Pulse Resp BP Pulse Ox O2 Del Method 36.9 C 104 H 24 108/69 95 Room Air 07/20/23 08:00 07/20/23 08:00 07/20/23 08:00 07/20/23 04:44 07/20/23 08:00 07/20/23 08:00 Pain Intensity Bilateral Abdomen: Pain Intensity: 5 Left Pelvic: Pain Intensity: 5 Notes Mental Status: alert / awake / arousable Nausea / Vomiting: adequately controlled Pain: adequately controlled Airway Patency, RR, SpO2: stable & adequate BP & HR: stable & adequate Hydration State: stable & adequate Neuraxial Anesthesia: was administered and sensory block is resolving Anesthetic Complications: no major complications apparent and Pt Satisfied with anesthetic care Epidural: Removed without complications and With tip intact
[2023-07-21 07:14] LABS: Hematocrit (blood only) 25.8 % (37.0-47.0); Hemoglobin 8.6 g/dl (12.0-16.0)
--- NOTE | 2023-07-21 07:30 | Obstetrical Progress Note ---
Date of Service July 21, 2023 Assessment & Plan (1) (normal spontaneous vaginal delivery): Plan: encourage ambulation pain control plan for dc today Admission and Anticipated Discharge Date Admission Date: July 18, 2023 Supervising Physician Co-Signing Physician Notes Resident Physician Supervision Note: I interviewed and examined the patient. Discussed with Dr. Posadas and agree with findings and plan as documented in the note. Any exceptions or clarifications are listed here: Doing well. Plan d/c. Instructions given. Documented By: Dipika Alegria MD, FACOG Subjective 23 yo post day 1 s/p Ambulation: ambulating normally Voiding: no voiding problems Passing Gas:: Yes Diet Tolerance:: regular diet Lochia:: Small Feeding Type:: breast feeding Current Pain Level: minimal Resting comfortably this AM in NAD. Denies DEL CASTILLO, CP, SOB, N/V/D, LE pain/swelling. Review of Systems Review of Systems: reviewed, per HPI Physical Exam Physical Exam: General: patient resting comfortably, NAD, non-toxic in appearance, AA&O x 4, a nswers questions appropriately. Skin: warm, dry, intact HEENT: NC/AT, anicteric sclera, conjunctiva without injection, moist mucus membranes. Heart: +S1/S2, regular, no m/r/g Lungs: equal air entry bilaterally, no rales/rhonchi/wheezes Abd: +BS, soft, NT/ND, uterine fundus firm at umbilicus. Ext: warm, no clubbing/cyanosis or edema, Avelino's neg. Neuro: nonfocal, patient AA&O x 4, speech intact, no facial droop, moving all extremities on command. Results & Data Vital Signs (Past 12 Hours) Vital Signs Temp Pulse Resp BP Pulse Ox O2 Del Method 07/20/23 23:40 36.4 C L 80 18 100/65 100 Room Air 07/20/23 19:55 36.8 C 78 20 100/65 97 Room Air Laboratory Results 07/21/23 Range/Units 06:33 Hgb 8.6 L (12.0-16.0) g/dl Hct 25.8 L (37.0-47.0) % Resident Activity Tracking Resident Involvement: Resident Care Provided Care Provided: Adult [facility]
[2023-07-21] MEDS: DOCUSATE SODIUM 100 MG CAP PO SCH ×2 (08:43→19:14)
[2023-07-21] MEDS: PRENATAL VITAMIN 1 TAB PO SCH (08:43)
[2023-07-21] MEDS: IBUPROFEN 600 MG TAB PO PRN (23:40)
--- NOTE | 2023-07-22 08:33 | Obstetrical Progress Note ---
Date of Service July 22, 2023 Assessment & Plan (1) Encounter for care and examination after delivery: Day 2 s/p . Doing well. Stable for discharge Subjective Ambulation: ambulating normally Voiding: no voiding problems Passing Gas:: Yes Diet Tolerance:: regular diet Lochia:: Moderate Feeding Type:: breast feeding Physical Exam Constitutional WD/WN, vitals as above Respiratory normal respiratory effort; no respiratory distress and no labored breathing Gastrointestinal (Abdomen) Inspection/Auscultation: abdomen normal to inspection; abdomen not distended Percussion/Palpation: abdomen soft; abdomen nontender, no guarding and abdomen not rigid Genitourinary OB Exam Abdomen: + fundal height Fundus: + firm and + relation to umbilicus (Below); not tender or not boggy Results & Data Vital Signs (Past 12 Hours) Vital Signs Temp Pulse Resp BP O2 Del Method 07/21/23 23:30 37.0 C 103 H 18 137/73 Room Air
[2023-07-22] MEDS: PRENATAL VITAMIN 1 TAB PO SCH (08:57)
[2023-07-22] MEDS: DOCUSATE SODIUM 100 MG CAP PO SCH (08:57)
== END 2023-07-22 13:00 | disposition home or self-care (01) | DRG 807 ==
LOC: 4S1 07:36 → 4E2 07-20 06:08